=== PATIENT | male | born 1955 | race Caucasian/White ===

== ENCOUNTER 2021-11-08 22:32 | Emergency (ER) | payer MEDICARE ==
[2021-11-08 22:37] VITALS: BP 113/74; PULSE 117; RESP 18
[2021-11-08 22:39] LABS: Glucose,Whole Blood 131 mg/dL (70-110)
--- NOTE | 2021-11-08 23:02 | ED ---
Fall HPI - General Chief Complaint: Fall Stated Complaint: Fall, ETOH Time Seen by Provider: 11/08/21 22:38 Source: EMS Mode of arrival: EMS - History of Present Illness Initial Comments: this patient is a 66-year-old man who presents to have evaluation for head injury after a fall. The patient states that he was"having too much fun" and by that he means drinking. Patient fell, he is not know exactly how. Believes he may have passed out briefly. Denies any other injury or pains. His only injury that he acknowledges is a right upper lip laceration and pain. MD Complaint: fall -: hour(s) Fall From: standing When Fall Occurred: 1-3 hours PHYSICAL THERAPY ASSISTANT Fall Witnessed: yes, by family Place Fall Occurred: street Loss of Consciousness: unsure Prolonged Down Time?: no Symptoms Prior to Fall: none Location: head Severity: mild Context: alcohol use Associated Symptoms: denies Review of Systems ROS Statement: Those systems with pertinent positive or pertinent negative responses have been documented in the HPI. ROS Other: All systems not noted in ROS Statement are negative. Constitutional: Denies: fever, weakness Eyes: Denies: eye pain, vision change ENT: Reports: other (lip laceration) Respiratory: Denies: cough, dyspnea Cardiovascular: Denies: chest pain, palpitations, syncope Gastrointestinal: Denies: abdominal pain, vomiting, diarrhea Genitourinary: Denies: dysuria, hematuria Musculoskeletal: Denies: back pain Skin: Denies: rash Neurological: Denies: headache, weakness, numbness Hematological/Lymphatic: Denies: easy bleeding General Exam Limitations: altered mental status General appearance: alert, in no apparent distress, appears intoxicated Head exam: Present: normocephalic Eye exam: Present: normal appearance, PERRL, EOMI. Absent: scleral icterus, conjunctival injection, nystagmus ENT exam: Present: normal oropharynx, mucous membranes moist, other (right upper lip laceration) Neck exam: Present: normal inspection, full ROM. Absent: tenderness, meningismus Respiratory exam: Present: normal lung sounds bilaterally. Absent: respiratory distress, wheezes, rales, rhonchi, stridor, chest wall tenderness Cardiovascular Exam: Present: normal rhythm, tachycardia, normal heart sounds. Absent: systolic murmur, diastolic murmur, rubs, gallop GI/Abdominal exam: Present: soft. Absent: distended, tenderness, guarding, rebound, rigid, mass Extremities exam: Present: normal inspection, normal capillary refill. Absent: pedal edema, calf tenderness Back exam: Present: normal inspection. Absent: CVA tenderness (R), CVA tenderness (L), paraspinal tenderness, vertebral tenderness Neurological exam: Present: alert, oriented X3, CN II-XII intact. Absent: motor sensory deficit Skin exam: Present: warm, dry, intact, normal color. Absent: rash Course Vital Signs 11/08/21 22:33 Pulse Rate 117 H Respiratory 18 Rate Blood Pressure 113/74 O2 Sat by Pulse 96 Oximetry Medical Decision Making - Lab Data Lab Results 11/08/21 Range/Units 22:38 POC Glucose (mg/dL) 131 H (70-110) mg/dL POC Glu [employer] ID Selene Heath Disposition Clinical Impression: Fall, Alcohol intoxication, Head injury Disposition: HOME SELF-CARE Condition: Good Instructions (If sedation given, give patient instructions): Head Injury (ED), Alcohol Intoxication (DC), Fall Prevention (ED) Is patient prescribed a controlled substance at d/c from ED?: No Referrals: None,Stated [Primary Care Provider] - 1-2 days
--- NOTE | 2021-11-09 00:10 | CT ---
EXAMINATION TYPE: CT brain cspine wo con DATE OF EXAM: 11/08/2021 COMPARISON: None HISTORY: fall CT DLP: 1469.1 mGycm Automated exposure control for dose reduction was used. Images of brain and cervical spine obtained with no contrast. Ventricles have fairly normal size. There is no mass effect or midline shift. No sign of intracranial hemorrhage. Calvarium is intact. Skull base is intact. There is normal aeration of the mastoid sinus es. The cervical vertebrae show mild straightening. There is degenerative disc space narrowing at C5-6 an d C6-7 with spurring of the endplates. Facet joints are intact. There is mild hypertrophic facet arth ropathy. Prevertebral soft tissues are intact. IMPRESSION: Negative CT scan of the brain. Spondylotic changes in the lower cervical spine. No fracture.
== END 2021-11-09 00:31 | disposition home or self-care (01) ==
LOC: EC 22:32
DX: S09.90XA Unspecified injury of head, initial encounter (principal); F10.99 Alcohol use, unspecified with unspecified alcohol-induced disorder; W19.XXXA Unspecified fall, initial encounter
CPT/HCPCS: 36415; 70450; 72125; 93005; 99284